=== PATIENT | female | born 1985 | race Caucasian/White ===

== ENCOUNTER 2017-12-05 19:40 | Emergency (ER) | payer MEDICAID ==
--- NOTE | 2017-12-05 21:51 | EDPHY ---
H & P Stated Complaint: back injury 3 weeks go- injury today numbness in legs and feet - Personal History LMP (Females 10-55): 15-21 Days Ago Current Tetanus Diphtheria and Acellular Pertussis (TDAP): Yes - Medical/Surgical History Hx Asthma: No Hx Chronic Respiratory Disease: No Hx Diabetes: No Hx Cardiac Disease: No Hx Renal Disease: No Hx Cirrhosis: No Hx Alcoholism: No Hx HIV/AIDS: No Hx Splenectomy or Spleen Trauma: No Time Seen by Provider: 12/05/17 20:00 HPI/ROS: Chief complaint: Low back pain History of present illness: This is a 32-year-old female who presents to the emergency department for evaluation of low back pain. Patient states 3 weeks ago she fell down a few steps striking her low back. Initially the back was sore but symptoms quickly resolved. She has been traveling extensively since then and feeling well. However yesterday she went to yoga and after yoga started developing increasing low back pain again. She states the pain erlin each side of the spine. It is a soreness. She gets intermittent numbness and tingling in both legs. No report of new direct trauma. No report of paralysis. No abnormal warmth or coolness. No saddle anesthesia reported. No bowel or bladder dysfunction. No difficulty ambulating. Review of systems: A 10 point review of systems was obtained and other than described above was negative (Venkat Cabrera) - Physical Exam Exam: General Appearance: Alert, nontoxic, easily conversant and moving about the room. Eyes: Pupils equal and round no pallor or injection. ENT, Mouth: Mucous membranes moist. Respiratory: There are no retractions, lungs are clear to auscultation. Cardiovascular: Regular rate and rhythm. Gastrointestinal: Abdomen is soft and non tender, no masses, bowel sounds normal. Neurological: Alert and oriented x4. Strength and sensation is intact and symmetrical in the upper and lower extremities. Patellar reflexes 2+ bilaterally, Achilles reflexes 1+ bilaterally. Straight leg raise test is negative bilaterally. She is ambulating without difficulty. Skin: Warm and dry, no rashes. Musculoskeletal: Neck is supple non tender. The spine is nontender to palpation along its entire length. There is no crepitus, bony deformity or step -off. She does have tenderness to the lumbar paraspinal muscles bilaterally. Extremities are symmetrical, full range of motion. Psychiatric: Patient is oriented X 3, there is no agitation. (Venkat Cabrera) Constitutional: Initial Vital Signs Temperature (C) 36.8 C 12/05/17 19:43 Heart Rate 84 12/05/17 19:43 Respiratory Rate 20 12/05/17 19:43 Blood Pressure 127/68 H 12/05/17 19:43 O2 Sat (%) 97 12/05/17 19:43 O2 Delivery Mode Room Air Allergies/Adverse Reactions: No Known Allergies Allergy (Unverified 12/05/17 19:42) Home Medications: Medication Instructions Recorded Cyclobenzaprine [Flexeril 10 MG 10 mg PO TID PRN #15 tab 12/05/17 (*)] Medical Decision Making - Diagnostics Imaging: I viewed and interpreted images myself ED Course/Re-evaluation: Patient is discussed with my secondary supervising physician Dr. Merari Galvan. Patient presents for low back pain. Pain appears to be in the paraspinal muscles. Her physical exam is otherwise unremarkable including a nonfocal neurologic exam. X-rays negative. Urine is negative. Urinalysis is concerning for infection. I had a lengthy discussion with the patient. She reports a history of urinary tract infections, she does not feel like she currently has one. I will send off a culture. I have offered to start treating her with antibiotics until the culture is resulted. She would prefer to wait until culture results are back to determine if she needs treatment. Home care is discussed. Strict return precautions are given. The patient voiced understanding and agreement with plan. (Venkat Cabrera) The patient was evaluated and managed by the physician dental assistant. I have reviewed this chart and I agree with the findings and plan of care as documented , as indicated by my signature. I am the secondary supervising physician. ( Merari Galvan) Differential Diagnosis: Included but not limited to back sprain or strain, herniated intervertebral disc , bony fracture, unlikely cauda equina syndrome or Master infection of the central nervous Systems given lack of risk factors and nonfocal neurologic exam (Venkat Cabrera) - Data Points Microbiology Results: MICROBIOLOGY 12/05/17 Unknown Urine,Clean Catch Urine Culture - Final Escherichia Coli Point of Care Test Results: Urine Collection Date 12/05/17 Collection Date 12/05/17 Collection Time 20:05 Collection Time 20:14 HCG Results Negative HCG Results Negative Urine Dip Collection Date 12/05/17 Collection Date 12/05/17 Collection Time 20:05 Collection Time 20:14 Specific [place] (1.002-1.030) 1.020 Specific [place] (1.002-1.030) 1.005 PH (5.0-7.5) 7.0 PH (5.0-7.5) 6.0 Leukocytes (Negative) 3+ Leukocytes (Negative) 3+ Nitrites (Negative) Negative Nitrites (Negative) Positive Protein (Negative) Negative Protein (Negative) Negative Glucose (Negative) Negative Glucose (Negative) Negative Ketones (Negative) Negative Ketones (Negative) Negative Urobilnogen (0.2-1.0 EU) 0.2 Urobilnogen (0.2-1.0 EU) 0.2 Bilirubin (Negative) Negative Bilirubin (Negative) Negative Blood (Negative) Negative Blood (Negative) Negative Departure - Departure Disposition: Home, Routine, Self-Care Clinical Impression: Back pain Qualifiers: Back pain location: low back pain Chronicity: acute Back pain laterality: bilateral Sciatica presence: without sciatica Qualified Code(s): M54.5 - Low back pain Condition: Good Instructions: Acute Low Back Pain (ED) Additional Instructions: Follow-up with a primary care doctor for continued evaluation and care Please follow-up in your urine culture in 2 days, if you develop any urinary symptoms please seek immediate care If symptoms worsen or new symptoms develop return to the emergency room for recheck Referrals: NONE *PRIMARY CARE P,. [Primary Care Provider] - As per Instructions [facility],. [Clinic] - As per Instructions Prescriptions: Cyclobenzaprine [Flexeril 10 MG (*)] 10 mg PO TID PRN #15 tab PRN Reason: Spasms
[2017-12-05 22:21] VITALS: BP 112/71
== END 2017-12-05 22:20 | disposition home or self-care (01) ==
DX: M54.5 Low back pain (principal)